=== PATIENT | male | born 1970 | race American Indian/Alaskan Native ===

== ENCOUNTER 2017-01-30 15:16 | Emergency (ER) | payer BC ==
[2017-01-30 15:46] VITALS: RESP 18; TEMP 98.5
[2017-01-30] MEDS ORDERED: Labetalol 25mg/5ml Syringe IV STA (16:44)
[2017-01-30] MEDS ORDERED: DiphenhydrAMINE 50 mg/ml Inj IVP STA (16:44)
[2017-01-30] MEDS ORDERED: Labetalol 25mg/5ml Syringe ONE (16:51)
[2017-01-30] MEDS ORDERED: DiphenhydrAMINE 50 mg/ml Inj ONE (16:51)
--- NOTE | 2017-01-30 16:52 | C.PDOC ---
History Of Present Illness 47 yr old male presents to the ER with complaints of swelling to the upper lip since yesterday. Patient states he had similar symptoms 2 days ago and was diagnosed with allergic reaction and discharged home. Patient stopped taking the Lisiinopril reports the swelling got better but however the swelling started again today and came back to the ER for reevaluation. Patient denies new exposure, fever, throat swelling, nausea, vomiting, weakness or numbness. Time Seen by Provider: 01/30/17 16:21 Chief Complaint (Nursing): Allergic Reaction History Per: Patient History/Exam Limitations: no limitations Onset/Duration Of Symptoms: Days (4) Current Symptoms Are (Timing): Still Present Associated Symptoms: Swelling Home/EMS Treatment: Benadryl Severity: Mild Pain Scale Rating Of: 0 Past Medical History Reviewed: Historical Data, Nursing Documentation, Vital Signs Vital Signs: Last Vital Signs Temp 98.5 F 01/30/17 15:44 Pulse 76 01/30/17 17:51 Resp 18 01/30/17 17:51 BP 224/123 H 01/30/17 17:51 Pulse Ox 96 01/30/17 17:51 - Medical History PMH: HTN - charity: water Procedures INJECT/INFUSE NEC (03/26/04) Family History: States: No Known Family Hx - Social History Hx Alcohol Use: No Hx Substance Use: No - Immunization History Hx Tetanus Toxoid Vaccination: No Hx Influenza Vaccination: No Hx Pneumococcal Vaccination: No Review Of Systems Except As Marked, All Systems Reviewed And Found Negative. Constitutional: Negative for: Fever ENT: Positive for: Other ((+) Swollen upper lip. ). Negative for: Throat Swelling Gastrointestinal: Negative for: Nausea, Vomiting Neurological: Negative for: Weakness, Numbness Physical Exam - Physical Exam Appears: Non-toxic, No Acute Distress Skin: Warm, Dry, No Rash Head: Atraumatic, Normacephalic Eye(s): bilateral: Normal Inspection, PERRL, EOMI Oral Mucosa: Moist Tongue: Normal Appearing, No Swelling, No Lesions Lips: Swelling (Mild swelling to the upper lip. ) Throat: Normal, No Erythema, No Exudate, No Drooling Chest: Symmetrical, No Tenderness Cardiovascular: Rhythm Regular, No Murmur Respiratory: Normal Breath Sounds, No Rales, No Wheezing Extremity: Normal ROM, No Swelling Neurological/Psych: Oriented x3, Normal Speech, Normal Motor ED Course And Treatment O2 Sat by Pulse Oximetry: 96 (on RA) Pulse Ox Interpretation: Normal Medical Decision Making Medical Decision Making: PLAN: * Benadryl IVP * Pepcid IVP * Solumedrol IVP * Labetalol IV NOTE: Prior records were reviewed, patient has no record of being seen in at a [facility] facility. On re-exam, the patient BP has increased. Clonidine PO ordered. on second re-exam, the patient reports improvement of symptoms. BP improved. Lungs are CTA, heart is RRR, abdomen is soft, non-tender and patient is tolerating PO well. Ambulatory in the ED with steady gait. Follow up with the medical doctor within 1-2 days. Return if worsened. Disposition - Disposition Referrals: Zeeshan Fairchild MD [Staff Provider] - Disposition: HOME/ ROUTINE Disposition Time: 18:21 Condition: FAIR Additional Instructions: Follow up with the medical doctor within 1-2 days. Return if worsened. Prescriptions: DiphenhydrAMINE [Benadryl] 25 mg PO Q4H PRN #30 cap PRN Reason: Itching / Pruritus Famotidine [Pepcid] 20 mg PO BID #20 tab predniSONE [Prednisone] 20 mg PO BID #10 tab Valsartan [Diovan] 80 mg PO DAILY #30 tab Instructions: Hypertension (DC), Angioedema (ED) - Clinical Impression Clinical Impression: Angioedema, Hypertension - PA / IVF EMBRYOLOGIST / Resident Statement MD/DO has reviewed & agrees with the documentation as recorded. - Scribe Statement The provider has reviewed the documentation as recorded by the Jailynibemerson Woodall All medical record entries made by the Sasha were at my direction and personally dictated by me. I have reviewed the chart and agree that the record accurately reflects my personal performance of the history, physical exam, medical decision making, and the department course for this patient. I have also personally directed, reviewed, and agree with the discharge instructions and disposition.
[2017-01-30 17:52] VITALS: PULSE 76; O2SAT 96
[2017-01-30 18:58] VITALS: BP 172/110
== END 2017-01-30 19:12 | disposition home or self-care (01) ==
LOC: C.ER 15:16
DX: T78.3XXA Angioneurotic edema, initial encounter (principal); I10 Essential (primary) hypertension
CPT/HCPCS: 96374; 96375; 99285; J1200; J2930